=== PATIENT | female | born 1980 | race Hispanic/Latino ===

== ENCOUNTER 2018-07-02 02:34 | Emergency (ER) | payer SELFPAY ==
[2018-07-02 03:24] VITALS: BP 131/77
[2018-07-02 04:36] LABS: HCG Qualitative,Urine Negative (Negative)
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
[2018-07-02] MEDS ORDERED: PEPCID PO ONE (05:39)
[2018-07-02] MEDS ORDERED: PEPCID ONE (05:39)
[2018-07-02] MEDS ORDERED: XYLOCAINE 1% MPF 5 mL INFILTRATI ONE (08:15)
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
[2018-07-02] MEDS ORDERED: TORADOL IM ONE (10:24)
== END 2018-07-02 10:35 | disposition home or self-care (01) ==
LOC: ED 02:34 → EEVIPCON 02:34 → ED 10:35
DX: S61.512A Laceration without foreign body of left wrist, initial encounter (principal); S46.811A Strain of other muscles, fascia and tendons at shoulder and upper arm level, right arm, initial encounter; S00.81XA Abrasion of other part of head, initial encounter; M54.2 Cervicalgia; F17.200 Nicotine dependence, unspecified, uncomplicated; Z90.89 Acquired absence of other organs; Y04.0XXA Assault by unarmed brawl or fight, initial encounter; Y93.89 Activity, other specified; Y92.009 Unspecified place in unspecified non-institutional (private) residence as the place of occurrence of the external cause; Y99.8 Other external cause status
CPT/HCPCS: 12002; 70450; 70486; 72125; 81025; 96372; 99284; J1885